=== PATIENT | female | born 1975 | race Two or more races ===

== ENCOUNTER 2021-03-28 01:19 | Emergency (ER) | payer OTHER ==
[~2021-03-28] VITALS: Ht 180.3 cm; Wt 117.9 kg
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
[2021-03-28] MEDS: TDAP [DIPH/PERTUSSIS/TET] 0.5 ML VIAL IM ONE (01:45)
[2021-03-28] MEDS ORDERED: TDAP [DIPH/PERTUSSIS/TET] 0.5 ML VIAL IM ONE (01:45)
[2021-03-28] MEDS: TETRAcaine 5 ML BOTTLE EACHEYE ONE (01:45)
[2021-03-28] MEDS ORDERED: FLUORESCEIN SODIUM OPHTH 1 EA STRIP ONE (01:56)
[2021-03-28] MEDS ORDERED: TOBR5DRO EACHEYE (02:18)
--- NOTE | 2021-03-28 02:23 | NUR ---
Patient discharged to home in stable condition. Written and verbal after care instructions given. Patient verbalizes understanding of instruction. Pt ambulatory with a steady gait
[2021-03-28 02:30] VITALS: BP 125/96
== END 2021-03-28 02:23 | disposition home or self-care (01) ==
LOC: ER 01:25
DX: S05.02XA Injury of conjunctiva and corneal abrasion without foreign body, left eye, initial encounter (principal); S05.01XA Injury of conjunctiva and corneal abrasion without foreign body, right eye, initial encounter; Z79.899 Other long term (current) drug therapy; W22.8XXA Striking against or struck by other objects, initial encounter; Y93.89 Activity, other specified; Y92.89 Other specified places as the place of occurrence of the external cause; Y99.8 Other external cause status
CPT/HCPCS: 90471; 90715; 99283; A6403; J7040 ×2

== ENCOUNTER 2023-04-16 11:12 | Emergency (ER) | payer OTHER ==
[~2023-04-16] VITALS: Ht 180.3 cm; Wt 117.9 kg
[~2023-04-16 11:12] MED LIST: TOBR5DRO EACHEYE
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
[2023-04-16] MEDS ORDERED: IBUPROFEN 400 MG TABLET ONE (11:55)
[2023-04-16] MEDS ORDERED: IBUPROFEN 400 MG TABLET PO ONE (12:00)
--- NOTE | 2023-04-16 13:28 | NUR ---
Provided discharge documents and education, patient agrees with plan. All safety precautions taken.
[2023-04-16 15:53] VITALS: BP 136/81
== END 2023-04-16 15:53 | disposition home or self-care (01) ==
LOC: ER 11:16
DX: M79.642 Pain in left hand (principal); Z79.899 Other long term (current) drug therapy
CPT/HCPCS: 71045-TC; 73130-TC; 73610-TC